=== PATIENT | male | born 1960 | race Two or more races ===

== ENCOUNTER 2022-03-16 17:58 | Emergency (ER) | payer OTHER ==
[~2022-03-16] VITALS: Ht 200.7 cm; Wt 70.0 kg
[2022-03-16] MEDS ORDERED: ACET-1158 PO (20:53)
[2022-03-16 22:43] VITALS: BP 101/73
== END 2022-03-16 22:43 | disposition home or self-care (01) ==
LOC: ER 18:02
DX: S20.211A Contusion of right front wall of thorax, initial encounter (principal); Z79.899 Other long term (current) drug therapy; V43.62XA Car passenger injured in collision with other type car in traffic accident, initial encounter; Y93.89 Activity, other specified; Y92.410 Unspecified street and highway as the place of occurrence of the external cause; Y99.8 Other external cause status
CPT/HCPCS: 71101